=== PATIENT | male | born 1965 | race Two or more races ===

== ENCOUNTER 2020-09-03 03:28 | Inpatient (IN) | payer OTHER ==
[2020-09-03] VITALS (28 sets, daily range): BP systolic 53–237; BP diastolic 27–171
[~2020-09-03] VITALS: Ht 167.6 cm; Wt 91.6 kg
--- NOTE | 2020-09-03 03:30 | NUR ---
PT BIBRA FROM HOME S/P SYNCOPE. ALSO C/O BLOODY EMESIS AND DIARRHEA. NOTED RED, DRY BLOOD ON PT'S MOUTH AND EXTREMITIES ON ARRIVAL. PT DENIES ABDOMINAL PAIN AT THIS TIME. PER EMS, PT HYPOTENSIVE AND VOMITTING ON SCENE. REC'D ZOFRAN 4MG IV AND 350ML NS EN ROUTE. PT AAOX4. VITAL SIGNS STABLE. NO ACUTE DISTRESS NOTED AT THIS TIME. PLACED IN GOWN AND ON MONITOR, WILL CONTINUE TO MONITOR
[2020-09-03] MEDS ORDERED: ONDANSETRON HCL/PF 4 MG/2 ML VIAL ONE (03:42)
[2020-09-03] MEDS ORDERED: PANTOPRAZOLE 40 MG VIAL ONE (03:42)
--- NOTE | 2020-09-03 03:55 | NUR ---
[facility]
--- NOTE | 2020-09-03 03:58 | NUR ---
GRACIE (DAUGHTER) CONTACT INFORMATION: [phone]
[2020-09-03] MEDS ORDERED: IV NS 0.9% 1,000 ML BAG IV ONE (04:00)
[2020-09-03] MEDS ORDERED: PANTOPRAZOLE 40 MG VIAL IV ONE (04:00)
[2020-09-03] MEDS ORDERED: ONDANSETRON HCL/PF 4 MG/2 ML VIAL IVP ONE (04:00)
[2020-09-03 04:02] LABS: BASOPHILS % (AUTO) 0.3 % (0.0-2.0); EOSINOPHILS % (AUTO) 1.5 % (0.0-6.0); LYMPHOCYTES # (AUTO) 6.4 /CMM (0.8-4.8); LYMPHOCYTES % (AUTO) 49.2 % (20.0-44.0); MEAN CORPUSCULAR HGB CONC 35 g/dl (31.0-36.0); MEAN CORPUSCULAR VOLUME 103 fL (80-96); MONOCYTES % (AUTO) 7.9 % (2.0-12.0); NEUTROPHILS # (AUTO) 5.4 /CMM (1.8-8.9); NEUTROPHILS % (AUTO) 41.1 % (43.0-81.0); PLATELET COUNT (AUTO) 79 /CMM (150-450); WHITE BLOOD COUNT (AUTO) 13.1 K/uL (4.3-11.0)
[2020-09-03 04:03] LABS: RED BLOOD CELL COUNT(AUTO) 1.78 MIL/uL (4.5-6.0)
[2020-09-03 04:04] LABS: HEMATOCRIT 18 % (39-51); HEMOGLOBIN 6.4 g/dL (13.5-17.5)
[2020-09-03 04:10] LABS: ALBUMIN 1.5 g/dL (3.4-5.0); BILIRUBIN,DIRECT 0.3 mg/dL (0.0-0.2); CALCIUM, SERUM 7.8 mg/dL (8.5-10.1); CREATININE 1.4 mg/dL (0.6-1.3); TOTAL PROTEIN, SERUM 4.3 g/dL (6.4-8.2)
--- NOTE | 2020-09-03 04:11 | NUR ---
PT RETURNED FROM CT
[2020-09-03 04:14] LABS: POTASSIUM 2.5 mmol/L (3.5-5.1)
[2020-09-03] MEDS ORDERED: POTASSIUM CL. PREMIX PERIPHER. 50 ML ONE ×3 (04:21→06:34)
[2020-09-03] MEDS ORDERED: POTASSIUM CHLORIDE 10 MEQ/50 ML PREMIXED IVPB FOR PERIPHERAL LINE IV ONE (04:30)
[2020-09-03 04:53] LABS: EOSINOPHILS % (MANUAL) 2 % (0-4); LYMPHOCYTES % (MANUAL) 48 % (16-48); MONOCYTES % (MANUAL) 8 % (0-11.0); NEUTROPHILS % (MANUAL) 42 (42-76)
--- NOTE | 2020-09-03 05:05 | NUR ---
BLOOD TRANSFUSION INITIATED AT THIS TIME. PT RESTING COMFORTABLY IN BED. VITAL SIGNS STABLE. PT STILL ON CONTINUOUS MANAGER INTELLIGENCE AND PULSE OX, WILL CONTINUE TO MONITOR
[2020-09-03] MEDS ORDERED: PANTOPRAZOLE 80 MG in IV NS 0.9% 100 ML IV ONE (06:00)
[2020-09-03] MEDS ORDERED: OCTREOTIDE 50 MCG/ML AMPUL IV ONE (06:00)
[2020-09-03] MEDS ORDERED: OCTREOTIDE 1,250 MCG in IV NS 0.9% 250 ML IV ONE (06:00)
[2020-09-03] MEDS ORDERED: OCTREOTIDE 100 MCG/ML VIAL ONE (06:01)
[2020-09-03] MEDS ORDERED: ONDANSETRON HCL/PF 4 MG/2 ML VIAL IVP PRN (06:30)
[2020-09-03] MEDS ORDERED: MAGNESIUM HYDROXIDE 30 ML UDC PO PRN (06:30)
[2020-09-03] MEDS ORDERED: ACETAMINOPHEN 325 MG TABLET PO PRN (06:30)
[2020-09-03] MEDS ORDERED: IV NS 0.9% 1,000 ML IV PRN (06:30)
[2020-09-03] MEDS ORDERED: OCTREOTIDE 500 MCG in IV NS 0.9% 99 ML IV PRN (06:30)
--- NOTE | 2020-09-03 06:34 | NUR ---
BLOOD TRANSFUSION COMPLETED AT THIS TIME. PT RESTING COMFORTABLY IN BED, NO ACUTE DISTRESS NOTED AT THIS TIME. VITAL SIGNS STABLE.
--- NOTE | 2020-09-03 06:58 | NUR ---
L AC 18G ACCIDENTALLY PULLED BY PATIENT. CATHETER INTACT AND SITE BENIGN. DRESSING APPLIED TO SITE, NO BLEEDING NOTED. NEW IV INITIATED L FOREARM 18G. IV INTACT AND PATENT, PLACED ON SALINE LOCK.
--- NOTE | 2020-09-03 07:20 | NUR ---
REPORT GIVEN TO ADOLFO WALKER FOR LIANE
[2020-09-03] MEDS ORDERED: HYDR-500 PO (07:52)
[2020-09-03] MEDS ORDERED: LOSA50TA39 PO (07:52)
[2020-09-03] MEDS ORDERED: NAPR-1009 PO (07:52)
[2020-09-03] MEDS ORDERED: CHOL200010 PO (07:52)
[2020-09-03] MEDS ORDERED: OCTREOTIDE 500 MCG/ML VIAL IV ONE (10:13)
[2020-09-03 10:26] LABS: CALCIUM, SERUM 7.6 mg/dL (8.5-10.1); CREATININE 2.1 mg/dL (0.6-1.3); POTASSIUM 4.3 mmol/L (3.5-5.1)
--- NOTE | 2020-09-03 10:26 | NUR ---
report given to Mario MATA for marito
--- NOTE | 2020-09-03 10:59 | NUR ---
wheeled patient via gurney accompanied by RN and emt in no distress. RN at bedside to assume care.
[2020-09-03 11:00] LABS: MAGNESIUM 1.7 mg/dL (1.8-2.4)
[2020-09-03] MEDS ORDERED: LORAZEPAM INJ 2 MG/ML VIAL IV PRN (11:00)
[2020-09-03] MEDS: CIPROFLOXACIN IV RTU 400 MG in PREMIX 1 EA IV SCH ×2 (11:00→23:19)
[2020-09-03] MEDS: Folic acid 1 MG in IV D5W 50 ML IV SCH ×2 (11:00→18:19)
[2020-09-03] MEDS ORDERED: Thiamine 100 MG in IV D5W 50 ML IV SCH (11:00)
[2020-09-03 11:21] LABS: THYROID STIMULATING HORMONE 0.703 uIU/mL (0.358-3.74)
[2020-09-03] MEDS ORDERED: IV NS 0.9% 1,000 ML IV ONE (11:30)
[2020-09-03] MEDS: METRONIDAZOLE 500MG/ NS 100ML 500 MG in PREMIX 1 EA IV SCH ×2 (12:00→18:00)
[2020-09-03 13:24] LABS: BASOPHILS % (AUTO) 0.1 % (0.0-2.0); EOSINOPHILS % (AUTO) 0.1 % (0.0-6.0); HEMATOCRIT 21 % (39-51); LYMPHOCYTES # (AUTO) 1.9 /CMM (0.8-4.8); LYMPHOCYTES % (AUTO) 9.5 % (20.0-44.0); MEAN CORPUSCULAR HGB CONC 32 g/dl (31.0-36.0); MEAN CORPUSCULAR VOLUME 108 fL (80-96); MONOCYTES # (AUTO) 1.2 /CMM (0.1-1.30); MONOCYTES % (AUTO) 6.1 % (2.0-12.0); NEUTROPHILS % (AUTO) 84.2 % (43.0-81.0); PLATELET COUNT (AUTO) 89 /CMM (150-450); WHITE BLOOD COUNT (AUTO) 20.2 K/uL (4.3-11.0)
[2020-09-03 13:26] LABS: RED BLOOD CELL COUNT(AUTO) 1.91 MIL/uL (4.5-6.0)
[2020-09-03 13:28] LABS: HEMOGLOBIN 6.6 g/dL (13.5-17.5)
[2020-09-03] MEDS ORDERED: ANESTHESIA TRAY IN PYXIS 1 EA TRAY MC ONE (15:02)
--- NOTE | 2020-09-03 15:28 | NUR ---
patient taken to or for edg. blood started before patient transported, patient vital signs include 137/100, 110, 97% on room air, 20 respirations. consent gotten before transport.
--- NOTE | 2020-09-03 16:30 | NUR ---
RN NOTES RECEIVED PATIENT VIA BED FROM SURGERY, S/P EGD, ACCOMPANIED BY ANESTHESIOLOGIST, AND 2 RN, PATIENT IS INTUBATED CONNECTED TO A VENT, ST ON THE MONITOR WITH HR OF 120'S, IV ACCESS ON RAC#18 AND LEFT HAND#18, CURRENTLY ON BLOOD TRANSFUSION, SANDOSTATIN RUNNING @10ML/HR, SAFETY MEASURES INITIATED, BED IN LOWEST LOCKED POSITION WITH SIDE RAILS UP X2, CALL LIGHT WITHIN REACH. WILL CONTINUE TO MONITOR.
[2020-09-03] MEDS ORDERED: PROPOFOL 100 ML IV PRN (17:00)
--- NOTE | 2020-09-03 17:42 | NUR ---
Patient transferred to ICU after procedure, EDG. Report given to Vasquez.
[2020-09-03 18:22] LABS: ABG BASE EXCESS -24.6 mmol/L; ABG OXYGEN SATURATION 98.9 % (92.0-98.5); ABG PCO2 21.1 mmHg (35.0-45.0); ABG PH 6.994 (7.350-7.450); ABG PO2 262.5 mmHg (75.0-100.0); AaDO2 429.4 mmHg; COHb 0.3 % (0.5-1.5); MetHb 0.6 % (0.0-1.5); PEEP,BG 0 cm H2O; SITE, ABG Right Femoral; VT, ABG 500 mL
--- NOTE | 2020-09-03 18:25 | NUR ---
RT Pt was found to be 26cm at the lip line, orders to pull out ET tube 3cm. ET tube is now secured at 23cm at the lip line. Pt has clear breath sounds on the right lung and diminished on the left post ET tube adjustment, charge notified and aware for recommendation of repeat chest x-ray. ABG done and results reported to charge nurse. Addendum: 09/03/20 at 1827 by PRERNA BELTRÁN RT Amended: Links added.
[2020-09-03] MEDS ORDERED: Sodium Bicarbonate 100 MEQ in IV D5W 1,000 ML IV SCH (18:30)
[2020-09-03] MEDS ORDERED: SODIUM BICARBONATE SYR 50 MEQ/50 ML DISP.SYRIN IV ONE ×2 (18:30→23:00)
--- NOTE | 2020-09-03 19:05 | NUR ---
RN NOTES PATIENT IN BED, INTUBATED ON VENT, TOLERATING CURRENT SETTING, BP IS STILL UNSTABLE, ORDERED LEVO, AWAITING FOR MEDICATION FROM PHARMACY, ANAMIKA MANUFACTURING QUALITY MANAGER AWARE. IV ACCESS ON RAC#18 AND LEFT HAND #18 RUNNING SANDOSTATIN @10ML/HR AND PROPOFOL @50MCG/KG/MIN. SAFETY MEASURES IN PLACE, BED IN LOWEST LOCKED POSITION WITH SIDE RAILS UP X2. CALL LIGHT WITHIN REACH. ENDORSED TO ADOLFO [place] FOR LIANE.
[2020-09-03 19:18] LABS: HEMATOCRIT 21 % (39-51); HEMOGLOBIN 9.5 g/dL (13.5-17.5); MEAN CORPUSCULAR HGB CONC 45 g/dl (31.0-36.0); MEAN CORPUSCULAR VOLUME 109 fL (80-96); PLATELET COUNT (AUTO) 88 /CMM (150-450); WHITE BLOOD COUNT (AUTO) 19.1 K/uL (4.3-11.0)
[2020-09-03 19:19] LABS: RED BLOOD CELL COUNT(AUTO) 1.96 MIL/uL (4.5-6.0)
[2020-09-03] MEDS ORDERED: NOREPINEPHRINE 8 MG in IV NS 0.9% 242 ML IV PRN (19:30)
[2020-09-03] MEDS: NOREPINEPHRINE 32 MG in IV NS 0.9% 218 ML IV PRN (19:46)
--- NOTE | 2020-09-03 19:50 | NUR ---
RN/ICU-SPOKE TO THE DAUGHTER DAMIAN AT LENGTH REGARDING PT. PLAN OF CARE AND PT. STATUS AT THIS TIME. PER DAUGHTER, NONE OF THE MDS HAS SPOKEN TO HER AFTER THE PROCEDURE. SO, WILL NOTIFY HOSPITALIST POWERHOUSE MECHANIC SUPERVISOR Cedrick ROMANO DNP TO CALL DAMIAN MOLLY AT [facility]. NO. [phone].
--- NOTE | 2020-09-03 20:01 | NUR ---
RECEIVED PT INTUBATED ON VENT 8.0 ETT SECURE AT 23CM AT THE LIP. AC 14, 500, 100%, ETT CUFF CHECKED REINFORCED CONCRETE INSPECTOR. VENT ALARMS SET AND AUDIBLE. VENT PLUGGED INTO RED OUTLET. CONTINUE [facility] VENT SUPPORT. Addendum: 09/03/20 at 2004 by HUMAIRA BROOKE RT Amended: Links added.
[2020-09-03] MEDS: PROPOFOL 100 ML IV PRN (20:07)
--- NOTE | 2020-09-03 20:25 | NUR ---
RN/ICU- SPOKE TO THE NURSING LABORER CARPENTRY DOCK JULIA REGARDING THE DISCUSSION THE CRN (ANDREW)HAD WITH THE DAUGHTER EARLIER AND THE PLAN TO CALL HOSPITALIST BARBER TO TALK TO DAUGHTER DAMIAN REGARDING PT. DIAGNOSIS , THE PROCEDURE THAT WAS DONE AND FINDINGS.
--- NOTE | 2020-09-03 20:30 | NUR ---
RN NOTES 190 PM - RECEIVED PATIENT ORALLY INTUBATED WITH ETT 8 POSITION AT 23 CM AT LIP LINE WITH VENT SETTING AC 14 TV 500 FIO2 100% NO PEEP. ST ON TELE MONITOR 102, SATURATION 99%. PATIENT IS RUNNING SANDOSTATIN S/P EGD IN O.R DUE TO GIB. AND PATIENT SEDATED WITH PROPOFOL @ 50 MCG/KG/MIN. IV SITE ON RAC AND LT. HAND ARE INTACT AND PATENT. NOTED PATIENT BP 56/39 CALLED MD WITH NEW ORDER OF LEVOPHED STARTED PROTOCOL ORDER. 1999 PM - FAMILY CALLED SPOKE WITH DAUGHTER DAMIAN AND STATE THAT SHE IS THE PRIMARY DECISION MAKER OF THE PATIENT GOT A CONSENT FOR PICC LINE INSERTION WITNESSED BY CHARGE NURSE. 2014 PM - DAUGHTER DAMIAN DEMAND TO SPEAK WITH THE DOCTOR REGARDING THE CASE OF HER DAD CALLED AND INFORMED JACKIE ROMNAO NP AND ANAMIKA
--- NOTE | 2020-09-03 21:14 | NUR ---
RN NOTES PICC LINE INSERTED ON AC WITH TRIPE LUMEN CATH WITH GOOD BLOOD RETURN WILL VERIFY BY CXR.
[2020-09-03] MEDS: PANTOPRAZOLE 40 MG VIAL IV SCH (21:28)
[2020-09-03 22:39] LABS: ABG OXYGEN SATURATION 88.1 % (92.0-98.5); ABG PCO2 30.8 mmHg (35.0-45.0); ABG PO2 76.3 mmHg (75.0-100.0); AaDO2 605.9 mmHg; COHb 0.5 % (0.5-1.5); MetHb 0.7 % (0.0-1.5); SITE, ABG Left Femoral
--- NOTE | 2020-09-03 22:40 | NUR ---
ABG DONE NOTIFIED RN WITH THE RESULT.
--- NOTE | 2020-09-03 23:04 | NUR ---
RN NOTES CALLED FURNACE ROASTER PULMO SPOKE WITH DR. LOCO REGARDING ABG RESULT PH 6.880 PCO2 30.8 PO2 76.3 HCO3 5.6 WITH NEW ORDER TO CHANGE VENT SETTING TO AC 20 PEEP 5 , INCREASE BICARB DRIP TO 125 ML/HR AND 1 AMP BICARB NOW. NOTED AND CARRIED OUT ORDER.
--- NOTE | 2020-09-03 23:05 | NUR ---
VENT CHANGES PER DR LOCO. RATE TO 20 AND PEEP OF 5. STAT EKG DONE. Addendum: 09/03/20 at 2306 by HUMAIRA BROOKE RT Amended: Links added.
--- NOTE | 2020-09-03 23:30 | NUR ---
RN AYDIN ROMANO LACQUER POLISHER CAME AND ASSESSED THE PATIENT. CALLED AND SPOKE TO DAUGHTER DAMIAN REGARDING PATIENT STATUS AND EXPLAINED THE POSSIBLE TRANSFER TO HIGHER LEVEL OF CARE ONCE THE PATIENT STABILIZED HERE AT [place]. VERIFY AND EXPLAINED THE PATIENT CASE AND DAUGHTER INCLUDING WHOLE FAMILY AGREED TO HAVE FULL TREATMENT (FULL CODE).
[2020-09-03 23:59] LABS: ALBUMIN 1.7 g/dL (3.4-5.0); BILIRUBIN,TOTAL 1.8 mg/dL (0.2-1.0); CALCIUM, SERUM 7.8 mg/dL (8.5-10.1); CREATININE 3.7 mg/dL (0.6-1.3); TOTAL PROTEIN, SERUM 4.3 g/dL (6.4-8.2)
[2020-09-04] VITALS (55 sets, daily range): BP systolic 29–174; BP diastolic 17–83
[2020-09-04] LABS: BASOPHILS # (AUTO) 0.1 /CMM (0.0-0.2); BASOPHILS % (AUTO) 0.3 % (0.0-2.0); EOSINOPHILS % (AUTO) 0.1 % (0.0-6.0); HEMATOCRIT 24 % (39-51); HEMOGLOBIN 7.6 g/dL (13.5-17.5); LYMPHOCYTES # (AUTO) 3.4 /CMM (0.8-4.8); LYMPHOCYTES % (AUTO) 16.2 % (20.0-44.0); MEAN CORPUSCULAR HGB CONC 31 g/dl (31.0-36.0); MEAN CORPUSCULAR VOLUME 111 fL (80-96); NEUTROPHILS # (AUTO) 16.2 /CMM (1.8-8.9); NEUTROPHILS % (AUTO) 78.4 % (43.0-81.0); PLATELET COUNT (AUTO) 89 /CMM (150-450); RED BLOOD CELL COUNT(AUTO) 2.19 MIL/uL (4.5-6.0); WHITE BLOOD COUNT (AUTO) 20.7 K/uL (4.3-11.0)
--- NOTE | 2020-09-04 | NUR ---
RN/ICU-DAUGHTER HERE W/ ANOTHER FAMILY MEMBER, SPOKE TO THEM AT LENGTH REGARDING PT. CONDITION, CRITICALLY ILL AND HEMODYNAMICALLY UNSTABLE. ALSO DISCUSSED W/ THEM PLAN OF CARE . ALL QUESTIONS ANSWERED APPROPRIATELY AND SAME VERBALIZED UNDERSTANDING. PER DAUGHTER, THEIR WISH IS TO KEEP PT. A FULL CODE AND TO DO EVERYTHING POSSIBLE. WILL CONTINUE TO CLOSELY MONITOR PT. AND REFER TO HOSPITALIST NEEDED PER PROTOCOL.
[2020-09-04] MEDS: METRONIDAZOLE 500MG/ NS 100ML 500 MG in PREMIX 1 EA IV SCH ×2 (00:18→05:20)
[2020-09-04 00:49] LABS: BAND % (MANUAL) 20 % (0.0-5.0); LYMPHOCYTES % (MANUAL) 17 % (16-48); MONOCYTES % (MANUAL) 5 % (0-11.0); NEUTROPHILS % (MANUAL) 58 (42-76)
[2020-09-04] MEDS ORDERED: DEXTROSE 50%-WATER 50 ML DISP.SYRIN IVP ONE (01:00)
[2020-09-04] MEDS ORDERED: CALCIUM CHLORIDE 1,000 MG/10 ML DISP.SYRIN IV ONE ×2 (01:00→09:07)
[2020-09-04] MEDS ORDERED: INSULIN REGULAR, HUMAN 100 UNIT/ML 3 ML VIAL IV ONE (01:00)
--- NOTE | 2020-09-04 01:00 | NUR ---
RN NOTES CALLED AND INFORMED ROSALINA REGARDING PT CRITICAL LABS FF; POTASSIUM 9, GLUCOSE 56 AND CO2 9, TROPONIN 0.791 WITH NEW ORDER TO GIVE CALCIUM CHLORIDE, D50% SYR. AND REGULAR INSULIN 10 UNITS NOTED AND ADMINISTERED ORDERED.
[2020-09-04] MEDS ORDERED: DEXTROSE 50%-WATER 50 ML DISP.SYRIN ONE (01:07)
[2020-09-04] MEDS ORDERED: PHENYLEPHRINE 10 MG/ML VIAL ONE (01:20)
[2020-09-04] MEDS ORDERED: PHENYLEPHRINE 100 MG in IV NS 0.9% 240 ML IV PRN (01:30)
[2020-09-04] MEDS ORDERED: CALCIUM CHLORIDE IV ONE (02:00)
[2020-09-04] MEDS ORDERED: NS 0.9% IV ONE (02:00)
--- NOTE | 2020-09-04 02:18 | NUR ---
RN/ICU- PT. MOTHER AND FATHER W/ ANOTHER FAMILY MEMBER HERE TO SEE PT.ALL QUESTIONS AND FAMILY CONCERNS ANSWERED APPROPRIATELY. VERBALIZED UNDERSTANDING.
[2020-09-04] MEDS: PROPOFOL 100 ML IV PRN (03:23)
[2020-09-04] MEDS ORDERED: NOREPINEPHRINE 4 MG/4 ML AMPUL IV ONE (04:08)
[2020-09-04] MEDS ORDERED: VASOPRESSIN INJ 20 UNIT/ML VIAL ONE (04:55)
[2020-09-04] MEDS ORDERED: VASOPRESSIN INJ 40 UNIT in IV NS 0.9% 38 ML IV PRN (05:00)
[2020-09-04 05:10] LABS: BASOPHILS # (AUTO) 0.1 /CMM (0.0-0.2); BASOPHILS % (AUTO) 0.5 % (0.0-2.0); EOSINOPHILS % (AUTO) 0.3 % (0.0-6.0); LYMPHOCYTES % (AUTO) 27.8 % (20.0-44.0); MEAN CORPUSCULAR HGB CONC 32 g/dl (31.0-36.0); MEAN CORPUSCULAR VOLUME 115 fL (80-96); MONOCYTES # (AUTO) 0.6 /CMM (0.1-1.30); MONOCYTES % (AUTO) 4.3 % (2.0-12.0); NEUTROPHILS # (AUTO) 9.6 /CMM (1.8-8.9); NEUTROPHILS % (AUTO) 67.1 % (43.0-81.0); PLATELET COUNT (AUTO) 83 /CMM (150-450); WHITE BLOOD COUNT (AUTO) 14.4 K/uL (4.3-11.0)
[2020-09-04] MEDS: NOREPINEPHRINE 32 MG in IV NS 0.9% 218 ML IV PRN (05:10)
[2020-09-04 05:32] LABS: BILIRUBIN,TOTAL 1.6 mg/dL (0.2-1.0); CALCIUM, SERUM 8.1 mg/dL (8.5-10.1); CREATININE 4.6 mg/dL (0.6-1.3); MAGNESIUM 2.5 mg/dL (1.8-2.4); TOTAL PROTEIN, SERUM 3.5 g/dL (6.4-8.2)
[2020-09-04 05:35] LABS: ALBUMIN 1.3 g/dL (3.4-5.0); PHOSPHORUS 15.8 mg/dL (2.5-4.9); POTASSIUM 8.5 mmol/L (3.5-5.1)
[2020-09-04 05:40] LABS: HEMATOCRIT 20 % (39-51); HEMOGLOBIN 6.4 g/dL (13.5-17.5); RED BLOOD CELL COUNT(AUTO) 1.79 MIL/uL (4.5-6.0)
--- NOTE | 2020-09-04 06:20 | NUR ---
RN NOTES CRITICAL LAB VALUES REPORTED BY [facility] TROPONIN 1.443 CO2 6 HGB 6.4 HCT 20 POTASSIUM 8.5 PHOS 15.8 AN ALB 1.3 REPORTED TO JAGDEEP ROMANO WITH NEW ORDER NOTED AND ACKNOWLEDGE. 0700 AM - PATIENT IS HEMODYNAMICALLY UNSTABLE, VENT SETTING REMAINED THE SAME AC20, TV 500 FIO2 100% PEEP REMOVED DUE BLD. PRESSURE UNABLE TO READ AT TIMES. ALL DRIPS TITRATED PROTOCOL ORDER. CONTINUE WITH BICARB, LEVO, MANISH, AND VASO. PATIENT IS BLEEDING FROM THE MOUTH. ENDORED CONTINUITY OF CARE TO AM NURSE.
[2020-09-04] MEDS ORDERED: CALCIUM CHLORIDE 1,000 MG/10 ML DISP.SYRIN IV STA (06:22)
[2020-09-04] MEDS ORDERED: DEXTROSE 50%-WATER 50 ML DISP.SYRIN IVP STA (06:22)
[2020-09-04] MEDS ORDERED: INSULIN REGULAR, HUMAN 100 UNIT/ML 3 ML VIAL IV STA (06:22)
--- NOTE | 2020-09-04 07:00 | NUR ---
SHOE FOLDER NOTES RECEIVED PATIENT UNSTABLE , UNRESPONSIVE , GCS OF 3 , GAG COUGH AND PUPILLARY REFLEXES ARE ACTIVE , PUPILS FIXED DILATED @ 5MM , DIPRIVAN HELD , AFIB 55 ON BEDSIDE MONITOR , FC INTACT NO URINE OUTPUT NOTED , AC PICC LINE WITH LEVOPHED @ 1MCG/KG/MIN , NEOSYNEPRINE @ 2.5MCG/KG/MIN , VASOPRESSIN @ 0.04U/HR , BICARB DRIP 2 AMPS @ 125ML/HR , SANDOSTATIN @ 50MCG/HR INFUSING WELL , HYPOTHERMIC @ 95.5F , WILL PLACE NICKY TOMPKINS , ALL NEEDS ATTENDED , WILL CONTINUE TO MONITOR.
[2020-09-04] MEDS ORDERED: Sodium Bicarbonate 100 MEQ in IV D5W 1,000 ML IV SCH (08:00)
[2020-09-04] MEDS ORDERED: OCTREOTIDE 500 MCG in IV NS 0.9% 99 ML IV SCH (08:00)
[2020-09-04] MEDS ORDERED: HYDROCORTISONE SOD SUCCINATE 100 MG/2 ML VIAL IV SCH (08:00)
[2020-09-04] MEDS: PANTOPRAZOLE 40 MG VIAL IV SCH (08:11)
[2020-09-04 08:15] LABS: ABG BASE EXCESS -27.6 mmol/L; ABG OXYGEN SATURATION 84.3 % (92.0-98.5); ABG PCO2 30.8 mmHg (35.0-45.0); ABG PO2 74.8 mmHg (75.0-100.0); AaDO2 607.4 mmHg; COHb 2.6 % (0.5-1.5); MetHb 0.4 % (0.0-1.5); O2Hb 81.8 % (94.0-97.0); SITE, ABG Left Brachial; VENT MODE, BG AC 20 500 100%
--- NOTE | 2020-09-04 08:40 | NUR ---
WINDOWS TECHNICAL SPECIALIST NOTES CODE MELVINA CALLED @ 0821 , PT PULSELESS , PEA ON THE MONITOR CPR STARTED , ACLS PERFORMED , SEE CODE BLUE SHEET BLOOD SUGAR CHECKED , DISCUSSED LATEST ABG OF THE PT , DR PALACIOS AT BEDSIDE , PT WITH ONGOING BLOOD TRANSFUSION PRESSURE BAG APPLIED , WITH ACTIVE BLEEDING ORALLY NOTED WITH 800ML BLOODY OUTPUT , @ 0838 CODE MELVINA ENDED UNSUCCESSFUL DR PALACIOS PRONOUNCE THE PT , TIFF SALGADO NOTIFIED . PT NO AUDIBLE HEART TONES , BP ABSENT , ON VENTILATOR ,
[2020-09-04] MEDS ORDERED: SODIUM BICARBONATE SYR 50 MEQ/50 ML DISP.SYRIN IV ONE (09:07)
[2020-09-04] MEDS ORDERED: FEE EMEERGENCY 1 MIN EA MC ONE (09:07)
[2020-09-04] MEDS ORDERED: EPINEPHRINE (1:10,000) SYRINGE 1 MG/10 ML DISP.SYRIN IVP ONE (09:07)
[2020-09-04] MEDS ORDERED: DEXTROSE 50%-WATER 50 ML DISP.SYRIN IV ONE (09:07)
--- NOTE | 2020-09-04 10:00 | NUR ---
BRANCH STORE MANAGER NOTES CORONERS CALLED NOTIFIED PT HX AND PROCEDURE DONE WITHIN 24 HOURS , PER CORONERS CALL THE SURGEON / GI DR WHICH IS DR QUINTANA TO DISCUSSED PROCEDURE DONE , CALLED AND LEFT A MESSAGE TO DR QUINTANA
[2020-09-04 10:22] LABS: BAND % (MANUAL) 3 % (0.0-5.0); LYMPHOCYTES % (MANUAL) 31 % (16-48); MONOCYTES % (MANUAL) 4 % (0-11.0); NEUTROPHILS % (MANUAL) 62 (42-76)
[2020-09-04] MEDS ORDERED: INSULIN REGULAR, HUMAN 100 UNIT/ML 10 ML VIAL IV ONE (11:48)
--- NOTE | 2020-09-04 13:30 | NUR ---
COMMUNITY RECREATION COORDINATOR NOTES RECEIVED A CALL FROM DR QUINTANA , DISCUSSED THAT HE SPOKE WITH [facility] AND SMITA BLACK GAVE HIM CLEARANCE , CALLED [facility] VERIFIED CLEARANCE # , PER PONCHO BLACK OK TO RELEASE BODY . BELONGING TOOK BY THE DAUGHTER , BELONGING LIST SIGNED , UPDATED MORTUARY INFORMATION ON PT CHART .
--- NOTE | 2020-09-04 15:39 | NUR ---
ASSEMBLER SURGICAL GARMENT NOTES NOTIFIY DR LOPEZ REGARDING FAMILY'S REQUEST TO TALK TO HIM FOR UPDATES REGARDING WHAT HAPPENED , DR LOPEZ AWARE . GAVE DAUGHTERS # DAMIAN [phone]
[2020-09-05 13:07] LABS: *SPE A/G RATIO 0.8 (0.7-1.7); *SPE ALBUMIN 1.6 g/dL (2.9-4.4); *SPE ALPHA-1-GLOBULIN 0.1 g/dL (0.0-0.4); *SPE ALPHA-2-GLOBULIN 0.2 g/dL (0.4-1.0); *SPE BETA GLOBULIN 0.6 g/dL (0.7-1.3); *SPE GLOBULIN, TOTAL 1.9 g/dL (2.2-3.9); *SPE M-SPIKE Not Observed g/dL (Not Observed); *SPEGAMMA GLOBULIN 0.9 g/dL (0.4-1.8)
== END 2020-09-04 12:54 | disposition expired | DRG 197 ==
LOC: ER 03:31 → TELE 10:05 → ICU 16:39
PROVIDERS: ADMIT Nurse Practitioner Acute Care; ATTEND Nurse Practitioner Acute Care
PROC: 0DJ08ZZ Inspection of Upper Intestinal Tract, Via Natural or Artificial Opening Endoscopic (ICD-10-PCS; principal; 2020-09-03)
PROC: 30233N1 Transfusion of Nonautologous Red Blood Cells into Peripheral Vein, Percutaneous Approach (ICD-10-PCS; 2020-09-03)
PROC: 5A1935Z Respiratory Ventilation, Less than 24 Consecutive Hours (ICD-10-PCS; 2020-09-03)
PROC: 30233N1 Transfusion of Nonautologous Red Blood Cells into Peripheral Vein, Percutaneous Approach (ICD-10-PCS; 2020-09-03)
PROC: 02HV33Z Insertion of Infusion Device into Superior Vena Cava, Percutaneous Approach (ICD-10-PCS; 2020-09-03)
PROC: B548ZZA Ultrasonography of Superior Vena Cava, Guidance (ICD-10-PCS; 2020-09-03)
PROC: 0BH17EZ Insertion of Endotracheal Airway into Trachea, Via Natural or Artificial Opening (ICD-10-PCS; 2020-09-03)
PROC: 5A1D70Z Performance of Urinary Filtration, Intermittent, Less than 6 Hours Per Day (ICD-10-PCS; 2020-09-04)
PROC: 5A2204Z Restoration of Cardiac Rhythm, Single (ICD-10-PCS; 2020-09-04)
DX: I86.4 Gastric varices (principal); D62 Acute posthemorrhagic anemia; I21.A1 Myocardial infarction type 2; I85.10 Secondary esophageal varices without bleeding; N17.0 Acute kidney failure with tubular necrosis; T39.395A Adverse effect of other nonsteroidal anti-inflammatory drugs [NSAID], initial encounter; E43 Unspecified severe protein-calorie malnutrition; K76.6 Portal hypertension; K31.89 Other diseases of stomach and duodenum; K70.30 Alcoholic cirrhosis of liver without ascites; I10 Essential (primary) hypertension; E87.6 Hypokalemia; E87.3 Alkalosis; D72.829 Elevated white blood cell count, unspecified; F10.20 Alcohol dependence, uncomplicated; Y90.9 Presence of alcohol in blood, level not specified; T44.5X5A Adverse effect of predominantly beta-adrenoreceptor agonists, initial encounter; Y92.9 Unspecified place or not applicable
CPT/HCPCS: 31720; 36415; 36600; 70450-TC; 71045-TC; 80048-TC; 80053-TC; 80061-TC; 80076-TC; 82550-TC; 82553; 82728-TC; 82803-TC; 82962-TC; 83540-TC; 83690-TC; 83735-TC; 84100-TC; 84155; 84165; 84439-TC; 84443-TC; 84484-TC; 85025-TC; 85027-TC; 85730-TC; 86850-TC; 87081-TC; 92950-TC; 93307-TC; 94003-TC; 94760-TC; 94799-TC; A4216; C1751; C9113; C9803; G0378; J0171; J0330; J0744; J1720; J1815; J2354; J2370; J2405; J3411; J3480; J3490; J7030; J7040; J7050; J7060; J7070; P9016-BL